=== PATIENT | male | born 1960 | race Hispanic/Latino ===

== ENCOUNTER 2017-06-07 06:28 | Day surgery (SDC) | payer MEDICAID ==
[~2017-06-07] VITALS: Ht 170.2 cm; Wt 61.2 kg
[~2017-06-07 06:28] MED LIST: SODIUM CHLORIDE 0.9% 1000ML 1,000 ML IV ONE
[2017-06-07 07:17] VITALS: BP 136/91
[2017-06-07] MEDS ORDERED: LACT10SO PO (08:26)
[2017-06-07] MEDS ORDERED: VITAMIN B 12 PO (08:26)
[2017-06-07] MEDS ORDERED: FOLI0.4T2 PO (08:26)
[2017-06-07] MEDS ORDERED: THIA50TA PO (08:26)
[2017-06-07] MEDS ORDERED: PROPOFOL 10 MG/ML 20ML VIAL IV ONE ×2 (10:05)
[2017-06-07] MEDS ORDERED: LIDOCAINE HCL 1% 20 ML VIAL ONE (10:05)
[2017-06-07 10:33] VITALS: BP 118/70
== END 2017-06-07 11:20 | disposition home or self-care (01) ==
LOC: DAH 06:28 → ENDO 06:28
PROVIDERS: ATTEND Internal Medicine
DX: K63.5 Polyp of colon (principal); K64.8 Other hemorrhoids; K92.0 Hematemesis; M19.90 Unspecified osteoarthritis, unspecified site; I25.10 Atherosclerotic heart disease of native coronary artery without angina pectoris; E78.00 Pure hypercholesterolemia, unspecified; K74.60 Unspecified cirrhosis of liver; I10 Essential (primary) hypertension
CPT/HCPCS: 43235; 45380; 45385; 88305; A4606; J2704 ×2; J7030

== ENCOUNTER 2019-02-01 09:48 | Emergency (ER) | payer MEDICAID ==
[~2019-02-01 09:48] MED LIST changes: +FOLI0.4T2 PO; +LACT10SO PO; -SODIUM CHLORIDE 0.9% 1000ML 1,000 ML IV ONE; +THIA50TA13 PO; +VITAMIN B 12 PO
[2019-02-01] MEDS ORDERED: MORPHINE SULFATE 4 MG/1ML SYG ONE (10:11)
[2019-02-01 10:36] LABS: BASOPHILS % (AUTO) 0.3 % (0.0-5.0); EOSINOPHILS % (AUTO) 1.1 % (0.0-8.0); HEMATOCRIT 33.8 % (42-54); LYMPHOCYTES % (AUTO) 26.6 % (21.0-51.0); MEAN CORPUSCULAR HEMOGLOBIN 31.8 pg (27.0-33.0); MEAN CORPUSCULAR HGB CONC 34.1 g/dL (32.0-36.0); MEAN CORPUSCULAR VOLUME 93.2 fL (79-99); MONOCYTES % (AUTO) 13.1 % (3.0-13.0); NEUTROPHILS % (AUTO) 58.9 % (40.0-77.0); PLATELET COUNT (AUTO) 239 K/uL (130-400); RED BLOOD CELL COUNT(AUTO) 3.63 MIL/uL (4.50-6.20); RED CELL DISTRIBUTION WIDTH 15.4 % (11.0-15.5); WHITE BLOOD COUNT (AUTO) 7.2 K/uL (4.8-10.8)
[2019-02-01 10:47] LABS: CREATININE 0.7 mg/dL (0.5-1.5)
[2019-02-01 10:53] LABS: ALBUMIN 3.7 g/dL (3.5-5.0); BILIRUBIN,TOTAL 0.5 mg/dL (0.2-1.0); TOTAL PROTEIN, SERUM 8.6 g/dL (6.0-8.3)
== END 2019-02-01 13:48 | disposition home or self-care (01) ==
LOC: EDH 09:48
DX: M79.601 Pain in right arm (principal); M79.602 Pain in left arm; F20.9 Schizophrenia, unspecified
CPT/HCPCS: 36415; 80053; 82550; 85025; 96372; 99284; J2270

== ENCOUNTER → 2019-04-07 | Outpatient (CLI) | payer MEDICAID ==
[~2019-04-07] MED LIST changes: +DIATR MEGLU/DIATRIZOATE SODIUM 30 ML BOTTLE ONE
== END | disposition home or self-care (01) ==
LOC: RAH 11:57
PROVIDERS: ATTEND Internal Medicine Gastroenterology
DX: K94.20 Gastrostomy complication, unspecified (principal)
CPT/HCPCS: 74018; Q9963

== ENCOUNTER → 2019-04-15 | Outpatient (CLI) | payer MEDICAID ==
[~2019-04-15] MED LIST changes: -DIATR MEGLU/DIATRIZOATE SODIUM 30 ML BOTTLE ONE
== END | disposition home or self-care (01) ==
LOC: RAH 07:13
PROVIDERS: ATTEND Internal Medicine Gastroenterology
DX: K70.31 Alcoholic cirrhosis of liver with ascites (principal)
CPT/HCPCS: 76700; 93975

== ENCOUNTER → 2019-08-26 | Outpatient (CLI) | payer MEDICAID | END | disposition home or self-care (01) | LOC: RAH 08:49 | PROVIDERS: ATTEND Internal Medicine Gastroenterology | DX: K76.0 Fatty (change of) liver, not elsewhere classified (principal); K70.31 Alcoholic cirrhosis of liver with ascites | CPT/HCPCS: 76700; 93975 ==

== ENCOUNTER 2022-11-27 17:57 | Emergency (ER) | payer MEDICAID ==
[~2022-11-27] VITALS: Ht 167.6 cm; Wt 59.0 kg
[~2022-11-27 17:57] MED LIST changes: +CYAN-35 PO; +CYAN-52 PO; -FOLI0.4T2 PO; +FOLI0.4T6 PO; +FOLI1 PO; -LACT10SO PO; +LACT10SO5 PO
[2022-11-27 20:30] LABS: EOSINOPHILS % (AUTO) 0.8 % (0.0-8.0); HEMATOCRIT 36.9 % (42-54); MEAN CORPUSCULAR HGB CONC 33.9 g/dL (32.0-36.0); MEAN CORPUSCULAR VOLUME 94.4 fL (79-99); MONOCYTES % (AUTO) 9.1 % (3.0-13.0); NEUTROPHILS % (AUTO) 53.5 % (40.0-77.0); PLATELET COUNT (AUTO) 64 K/uL (130-400); RED BLOOD CELL COUNT(AUTO) 3.91 MIL/uL (4.50-6.20); RED CELL DISTRIBUTION WIDTH 13.3 % (11.0-15.5); WHITE BLOOD COUNT (AUTO) 4.9 K/uL (4.8-10.8)
[2022-11-27 20:45] LABS: INR 1.06 (0.85-1.15); PROTHROMBIN TIME 11.5 SEC (9.6-11.6)
[2022-11-27 20:46] LABS: PARTIAL THROMBOPLASTIN TIME 29.9 SEC (26.3-35.5)
[2022-11-27 20:56] LABS: CARBON DIOXIDE 25 mmol/L (21-32); CHLORIDE 101 mmol/L (101-111); CREATININE 0.7 mg/dL (0.5-1.5); GLOMERULAR FILTR. RATE CALC 105 mL/min (>90); GLUCOSE,RANDOM 92 mg/dL (70-105); POTASSIUM 3.6 mmol/L (3.5-5.1); SODIUM SERUM 137 mmol/L (136-145); UREA NITROGEN, BLOOD 2 mg/dL (7-18)
[2022-11-27 21:05] LABS: ALANINE AMINOTRANSFERASE 65 U/L (12-78); ALBUMIN 3.9 g/dL (3.5-5.0); ASPARTATE AMINOTRANSFERASE 167 U/L (10-37); CREATINE KINASE, TOTAL 163 U/L (21-232)
[2022-11-27 21:15] LABS: SALICYLATE < 2.8 mg/dL (2.8-20.0)
[2022-11-27 21:16] LABS: ACETAMINOPHEN < 1 mcg/mL (10-29)
[2022-11-27 21:42] LABS: PLATELET MORPHOLOGY COMMENT DECREASED
[2022-11-28 00:13] VITALS: BP 110/74
[2022-11-28] MEDS ORDERED: TETANUS/DIPHTHERIA TOXOID [ADULT] 0.5 ML VIAL IM ONE (00:30)
[2022-11-28] MEDS ORDERED: AMOX-426 PO (00:48)
== END 2022-11-28 01:15 | disposition home or self-care (01) ==
LOC: EDH 17:57
DX: S51.011A Laceration without foreign body of right elbow, initial encounter (principal); S70.01XA Contusion of right hip, initial encounter; F10.10 Alcohol abuse, uncomplicated; D69.6 Thrombocytopenia, unspecified; F10.129 Alcohol abuse with intoxication, unspecified; Z59.00 Homelessness unspecified; X58.XXXA Exposure to other specified factors, initial encounter; Y93.89 Activity, other specified; Y92.89 Other specified places as the place of occurrence of the external cause; Y99.8 Other external cause status; Y90.8 Blood alcohol level of 240 mg/100 ml or more
CPT/HCPCS: 99285; 70450; 71045; 82550; 84484; 80053; 85025; 85610; 85730; 87040 ×2; 83605 ×2; 36415 ×2; 73090; 73060; 72125; 90471; 93005; 90714; 73522; G0481

== ENCOUNTER 2023-09-28 21:15 | Emergency (ER) | payer MEDICAID ==
[~2023-09-28] VITALS: Ht 170.2 cm; Wt 71.7 kg
[~2023-09-28 21:15] MED LIST changes: +AMOX-426 PO
[2023-09-28 21:40] LABS: MEAN CORPUSCULAR HEMOGLOBIN 31.9 pg (27.0-33.0); MEAN CORPUSCULAR HGB CONC 34.2 g/dL (32.0-36.0); MEAN CORPUSCULAR VOLUME 93.4 fL (79-99); RED BLOOD CELL COUNT(AUTO) 4.07 MIL/uL (4.50-6.20); RED CELL DISTRIBUTION WIDTH 13.4 % (11.0-15.5); WHITE BLOOD COUNT (AUTO) 6.9 K/uL (4.8-10.8)
[2023-09-28] MEDS: LORAZEPAM 2 MG/ML 1 ML VIAL IM ONE (21:48)
[2023-09-28 21:49] LABS: CREATININE 0.6 mg/dL (0.5-1.3); POTASSIUM 3.8 mmol/L (3.5-5.1)
[2023-09-28 21:53] LABS: ADD UA MICROSCOPIC YES; APPEARANCE,URINE CLEAR (CLEAR); BILIRUBIN,URINE NEGATIVE (NEGATIVE); COLOR,URINE COLORLESS (YELLOW); GLUCOSE, URINE (UA) NEGATIVE (NEGATIVE); KETONES,URINE NEGATIVE (NEGATIVE); LEUKOCYTE ESTERASE ,URINE NEGATIVE Leu/uL (NEGATIVE); NITRATE,URINE NEGATIVE (NEGATIVE); OCCULT BLOOD,URINE NEGATIVE (NEGATIVE); PROTEIN,URINE NEGATIVE (NEGATIVE); UROBILINOGEN,URINE 0.2 mg/dL (0.2-1.0)
[2023-09-28 21:54] LABS: SQUAMOUS EPITHELIAL CELL,UR RARE /HPF (0-2)
[2023-09-28 22:00] LABS: AMPHET/METH SCREEN,URINE NEGATIVE (NEGATIVE); BARBITURATE SCREEN, URINE NEGATIVE (NEGATIVE); BENZODIAZEPINES SCREEN,URINE NEGATIVE (NEGATIVE); CANNABINOID SCREEN,URINE NEGATIVE (NEGATIVE); COCAINE SCREEN,URINE NEGATIVE (NEGATIVE); OPIATE SCREEN,URINE NEGATIVE (NEGATIVE); PHENCYCLIDINE SCREEN,URINE NEGATIVE (NEGATIVE)
[2023-09-29 00:44] VITALS: BP 109/61; PULSE 67; RESP 16; O2SAT 99
== END 2023-09-29 00:57 | disposition home or self-care (01) ==
LOC: EDH 21:15
DX: S01.91XA Laceration without foreign body of unspecified part of head, initial encounter (principal); F10.129 Alcohol abuse with intoxication, unspecified; W18.39XA Other fall on same level, initial encounter; Y93.89 Activity, other specified; Y92.89 Other specified places as the place of occurrence of the external cause; Y99.8 Other external cause status
CPT/HCPCS: 99285; 70450; 71045; 82550; 80048; 80305; 85027; 81001; 36415; 72170; 72125; 96372; J2060